=== PATIENT | female | born 1985 | race Caucasian/White ===

== ENCOUNTER 2022-10-03 03:04 | Emergency (ER) | payer OTHER, SELFPAY ==
[2022-10-03] MEDS ORDERED: Lorazepam 2 MG/ML VIAL ONE (03:45)
[2022-10-03] MEDS ORDERED: Aspirin Chewable 81 MG TAB ONE (03:46)
[2022-10-03] MEDS ORDERED: cloNIDine 0.1 MG TAB ONE (03:46)
[2022-10-03 04:00] LABS: #Basophils 0.1 thou/uL (0.0-0.2); #Eosinphils 0.1 thou/uL (0.0-0.7); #Lymphocytes 2.2 thou/uL (1.20-3.40); #Monocytes 0.5 thou/uL (0.11-0.59); #Neutrophils 2.1 thou/uL (1.40-6.50); %Basophils 1.8 % (0.0-1.0); %Eosinophils 1.8 % (0.0-10.0); %Lymphocytes 44.5 % (21.0-51.0); %Monocytes 10.1 % (0.0-10.0); %Neutrophils 41.8 % (42.0-75.0); Hemoglobin 13.4 g/dL (12.0-16.0); Mean Corpuscular HGB CONC 32.9 g/dL (32.0-36.0); Mean Corpuscular Hemoglobin 31.9 pg (27.0-31.0); Mean Corpuscular Volume 97.1 fl (78.0-98.0); Mean Platelet Volume 11.3 fL (7.4-10.4); Platelet Count 201 10x3/uL (130-400); White Blood Cell (WBC) Count 4.9 10x3/uL (4.8-10.8)
[2022-10-03 04:12] LABS: ALT (SGPT) 17 U/L (8-55); AST (SGOT) 17 U/L (5-34); Albumin 4.5 g/dL (3.5-5.0); Alkaline Phosphatase 96 U/L (40-110); Anion Gap 12 mmol/L (10-20); BUN (Urea Nitrogen) 17 mg/dL (7.0-18.7); Bilirubin, Total 0.2 mg/dL (0.2-1.2); Calc. Creatinine Clearance 0 mL/min (70-130); Calcium 9.5 mg/dL (7.8-10.44); Carbon Dioxide 25 mmol/L (22-29); Chloride 107 mmol/L (98-107); Estimated GFR 80; Globulin 2.7 g/dL (2.4-3.5); Glucose 81 mg/dL (70-105); Lipase 33 U/L (8-78); Magnesium 2.2 mg/dL (1.6-2.6); Protein, Total 7.2 g/dL (6.0-8.3); Sodium 140 mmol/L (136-145)
[2022-10-03 04:55] LABS: Bilirubin Negative (Negative); Blood, Urine Negative (Negative); Clarity Clear (Clear); Glucose, Urine (Dipstick) Negative (Negative); Ketone, Urine Negative (Negative); Leukocyte Negative (Negative); Nitrite Negative (Negative); Protein, Urine (Dipstick) Negative (Neg-Trace); Specific Gravity, Urine 1.015 (1.005-1.030); Urobilinogen 0.2 mg/dL (Less than 2)
== END 2022-10-03 04:39 | disposition home or self-care (01) ==
LOC: BURERS 03:04
DX: F41.9 Anxiety disorder, unspecified (principal); K21.9 Gastro-esophageal reflux disease without esophagitis; I10 Essential (primary) hypertension; Z87.891 Personal history of nicotine dependence; Z79.899 Other long term (current) drug therapy
CPT/HCPCS: 71045; 80053; 81003; 83605; 83690; 83735; 83880; 84443; 84484; 85025; 85379; 93005; 96374; J2060